=== PATIENT | female | born 1960 | race Two or more races ===

== ENCOUNTER → 2020-08-03 | Day surgery (SDC) | payer OTHER ==
[~2020-08-03] VITALS: Ht 170.2 cm; Wt 85.7 kg
[2020-08-03] VITALS (10 sets, daily range): BP systolic 112–141; BP diastolic 62–97
[~2020-08-03] MED LIST: Atropine Sulfate 0.4mg/ml inj IVP PRN; Bupivacaine 0.25% Inj 30ml INJ ONE; Clindamycin 600mg/D5W 50ml IV ONE; D5 1/2NS 1,000 ML IV SCH; DiphenhydrAMINE 50mg/ml Inj IVP PRN; EPINEPHrine 1mg/1ml Amp ONE; HYDROcodone/Acetamin 5/325 tab ORAL PRN; HYDROcodone/Acetamin 7.5/325 tab ORAL PRN; HYDROmorphone 1mg/ml Carpuject SUBQ PRN; Hydromorphone 0.5mg/0.5ml inj IVP PRN; Kenalog-40 1ml Vial ONE; Ketorolac 30mg Inj IV PRN; Ketorolac 30mg Inj ONE; LORazepam Inj 2mg/ml 1ml IV PRN; LR 1000ml 1,000 ML IVLG SCH; Labetalol 5mg/ml 20ml vial IV PRN; Lidocaine 1% MPF 10mg/ml 5ml ONE; Meperidine 25mg/1ml Inj (FOR RIGORS ONLY) IV PRN; Metoclopramide 10mg/2ml Inj IVP PRN; Midazolam 2mg/2ml Inj IVP PRN; PROBIOTIC1 EAC2 PO; Ropivacaine 5mg/ml Vial 30ml INJ ONE; Sodium Chloride 10ml vial INJ ONE; Tylenol #3 tab (300mg/30mg) ORAL PRN; celeBREX 200mg Cap **SURGERY PATIENTS ONLY ORAL ONE; fentaNYL 100 mcg/2 mL IV PRN; oxyCODONE HCL/Acetaminophen 5/325mg ORAL PRN; oxyCONTIN 20mg tab ORAL ONE; vitamin D PO
--- NOTE | 2020-08-03 07:10 | Anethesia Preoperative Eval ---
Anesthesia Pre-op PMH/ROS General Date of Evaluation: Aug 03, 2020 Time of Evaluation: 07:36 Anesthesiologist: Radha ASA Score: ASA 3 Mallampati Score Class I : Soft palate, uvula, fauces, pillars visible Class II: Soft palate, uvula, fauces visible Class III: Soft palate, base of uvula visible Class IV: Only hard plate visible Mallampati Classification: Class II Surgeon: Terence Diagnosis: L Shoulder Pain Surgical Procedure: L Shoulder Arthroscopy Anesthesia History: none Social History: smoking Family History: no anesthesia problems Allergies: Coded Allergies: IODINATED CONTRAST MEDIA (Verified Allergy, Severe, ANAPHYLACTIC SHOCK, 08/01/20) SHELLFISH DERIVED (Verified Allergy, Severe, ANAPHYLATIC SHOCK , 08/01/20) PENICILLINS (Verified Allergy, Intermediate, RASH, SKIN PEELS, 08/01/20) THIMEROSAL (Verified Allergy, Intermediate, RASH, SKIN PEELS, 08/01/20) Medications: see eMAR Patient NPO?: Yes Past Medical History Cardiovascular: Reports: HTN Pulmonary: Reports: other - Bronchitis, Pneumonia Other: obesity Anesthesia Pre-op Phys. Exam Physician Exam Last Vital Signs Date Time Temp Pulse Resp B/P (MAP) Pulse Ox O2 Delivery O2 Flow Rate FiO2 08/03/20 06:41 97.0 77 18 141/97 97 Room Air Constitutional: NAD Neurologic: CN 2-12 intact Cardiovascular: RRR Respiratory: CTA Gastrointestinal: S/NT/ND Airway Exam Mallampati Score: Class II MO: full ROM: full Teeth: missing, intact Anesthesia Pre-op A/P Risk Assessment & Plan Assessment: ASA 3 Plan: GA Status Change Before Surgery: No Pre-Antibiotics Dru Gram Ancef IV Given Within 1 Hr of Incision: Yes Time Given: 07:59 Jc Garcia MD Aug 03, 2020 07:10
--- NOTE | 2020-08-03 07:11 | Immediate Post-Op Evaluation ---
Immediate Post-Op Evalulation Immediate Post-Op Evalulation Procedure: L Shoulder Arthroscopy Date of Evaluation: Aug 03, 2020 Time of Evaluation: 09:22 IV Fluids: 800 LR Blood Products: 0 Estimated Blood Loss: 10 Urinary Output: 0 Blood Pressure Systolic: 117 Blood Pressure Diastolic: 71 Pulse Rate: 63 Respiratory Rate: 16 O2 Sat by Pulse Oximetry: 100 Temperature (Fahrenheit): 97.8 Pain Score (1-10): 2 Nausea: No Vomiting: No Complications 0 Patient Status: awake, reacts, patent, none Hydration Status: adequate Dru Gram Ancef IV Given Within 1 Hr of Incision: Yes Time Given: 07:59 Jc Garcia MD Aug 03, 2020 07:11
--- NOTE | 2020-08-03 07:13 | 48 Hour Post Anesthesia Eval ---
Post Anesthesia Evaluation Procedure: L Shoulder Arthroscopy Date of Evaluation: Aug 03, 2020 Time of Evaluation: 11:34 Blood Pressure Systolic: 147 0: 74 Pulse Rate: 63 Respiratory Rate: 18 Temperature (Fahrenheit): 98 O2 Sat by Pulse Oximetry: 98 Airway: patent Nausea: No Vomiting: No Pain Intensity: 1 Hydration Status: adequate Cardiopulmonary Status: Stable Mental Status/LOC: patient returned to baseline Follow-up Care/Observations: 0 Post-Anesthesia Complications: 0 Follow-up care needed: ready to discharge Jc Garcia MD Aug 03, 2020 07:12
--- NOTE | 2020-08-03 07:52 | Pre-Procedure Note/Attestation ---
Pre-Procedure Note/Attestation Complete Prior to Procedure Planned Procedure: left Procedure Narrative: shoulder arthroscopy, sad, possible slap repair Indications for Procedure Pre-Operative Diagnosis: left shoulder internal derangment Attestation I attest that I discussed the nature of the procedure; its benefits; risks and complications; and alternatives (and the risks and benefits of such alternatives), prior to the procedure, with the patient (or the patient's legal territory sales representative). I attest that, if there was a reasonable possibility of needing a blood transfusion, the patient (or the patient's legal territory sales representative) was given the [facility] standardized written summary, pursuant to the [place] Blood Safety Act ([place] Health and Safety Code # 1645, as amended). I attest that I re-evaluated the patient just prior to the surgery and that there has been no change in the patient's H&P, except as documented below: Donald Pratt MD Aug 03, 2020 07:52
--- NOTE | 2020-08-03 07:53 | Operative Note - PDOC ---
Operative Note Operative Note Pre-op Diagnosis: left shoulder internal derangment Procedure: see op report Post-op Diagnosis: same as pre-op plus Operative Findings: consistent w/pre-op dx studies Anesthesia: regional Specimen: none Complications: none Condition: stable Estimated Blood Loss: none Implant(s) used?: No Donald Pratt MD Aug 03, 2020 07:53
--- NOTE | 2020-08-03 11:14 | Operative Note - Dictated ---
DATE OF OPERATION: 08/03/2020 SURGEON: Donald Pratt MD. PREOPERATIVE DIAGNOSES: 1. Left shoulder internal derangement with possible SLAP tear/labral tear. 2. Left shoulder impingement syndrome. POSTOPERATIVE DIAGNOSES: 1. Left shoulder SLAP tear. 2. Left shoulder biceps tendinosis. 3. Left shoulder partial articular-sided rotator cuff tear. 4. Left shoulder impingement syndrome/bursitis. PROCEDURES: 1. Left shoulder diagnostic arthroscopy and extensive intra-articular debridement. 2. Debridement/repair grade 1 superior labral tear. 3. Subacromial decompression, bursectomy. INDICATION FOR PROCEDURE: The patient is a pleasant female, who has had progressive left shoulder pain. She had an MRI, which showed some internal derangement of the labrum. Clinically, she has evidence of biceps tendinosis and impingement syndrome. She failed conservative treatment and elected to undergo left shoulder diagnostic arthroscopy, subacromial decompression bursectomy with repair versus debridement of labral tear. Risks, limitations, expectations, and complications related to the procedure were discussed in detail. All questions addressed. DESCRIPTION OF PROCEDURE: After informed consent was obtained, the patient was brought into operating room. The patient was placed under interscalene general anesthesia. Left shoulder was prepped and draped in a sterile manner. Time-out was performed. Inferolateral stab incision was then made. Trocar was introduced into the glenohumeral joint. There was significant fraying of the anterior labrum, superior labrum and articular side of the rotator cuff. Portal was developed through the rotator interval along with shaver. Shaver was then placed. Debridement of the anterior labrum extending superiorly was performed. Undersurface of the acromion was identified. The biceps tendon had some tenodesis. The articular-sided rotator cuff was debrided of the partial articular-sided rotator cuff tear. There was some grade 1 chondral damage in the anterior glenoid, no loose bodies. Once the debridement was all completed, the probe was then placed and the superior labrum was probed. There was negative external or abduction external rotation dynamic test. It was felt that debridement was adequate and formal fixation was not required of the superior labrum. At this point, the camera was placed in the subacromial space. There was significant hypertrophic bursal tissue. The acromion was identified and acromioplasty was started from lateral to medial, completed from posterior to anterior. Once this was done, the bursectomy was extended posteriorly. Once this was completed, the instruments were removed. Portal sites closed with 3-0 Monocryl sutures. Steri-Strips and a sterile dressing applied. ESTIMATED BLOOD LOSS: None. COMPLICATIONS: None. SPECIMENS: None. IMPLANTS: None. Donald Pratt M.D. DR: KENAN JOB#: [id number] CC: [email or web address]
== END | disposition home or self-care (01) ==
LOC: SUR 06:14
DX: M75.42 Impingement syndrome of left shoulder (principal); S43.432A Superior glenoid labrum lesion of left shoulder, initial encounter; M75.112 Incomplete rotator cuff tear or rupture of left shoulder, not specified as traumatic; M71.9 Bursopathy, unspecified; M75.22 Bicipital tendinitis, left shoulder; X58.XXXA Exposure to other specified factors, initial encounter; Y92.9 Unspecified place or not applicable; I10 Essential (primary) hypertension; Z88.0 Allergy status to penicillin; Z91.041 Radiographic dye allergy status; Z91.013 Allergy to seafood; F17.200 Nicotine dependence, unspecified, uncomplicated; E66.9 Obesity, unspecified; Z68.29 Body mass index [BMI] 29.0-29.9, adult
CPT/HCPCS: 29823; J0171; J0690; J1100; J1885; J2250; J2405; J2795; J3301; J3490